=== PATIENT | female | born 1950 | race Caucasian/White ===

== ENCOUNTER → 2021-02-22 | Outpatient (CLI) | payer MEDICARE ==
[~2021-02-22] MED LIST: AMLO-186 PO; ATOR40TA59 PO; OMEP40CA7 PO
[2021-02-25 12:00] VITALS: BP 122/84
== END ==
LOC: LAB 08:00
PROVIDERS: ATTEND Internal Medicine Gastroenterology
DX: Z01.812 Encounter for preprocedural laboratory examination (principal); K21.9 Gastro-esophageal reflux disease without esophagitis; Z20.822 Contact with and (suspected) exposure to COVID-19
CPT/HCPCS: C9803; U0003

== ENCOUNTER → 2021-02-25 | Day surgery (SDC) | payer MEDICARE ==
[~2021-02-25] MED LIST changes: +IPRATRPIUM/ALBUTEROL 0.5/2.5MG 3 ML NEBU. NEB PRN; +IV RINGERS SOLUTION,LACTATED 1,000 ML IV SCH; +LIDOCAINE 2% PF 5 ML VIAL. ONE; +MIDAZOLAM HCL PF 2 MG/2 ML VIAL. IV ONE; +ONDANSETRON PF 4 MG/2 ML VIAL. IV PRN; +PROPOFOL 10,000 MCG/ML (20ML) VIAL IV ONE
[2021-02-25 12:00] VITALS: BP 122/84
--- NOTE | 2021-02-28 17:09 | PATHOLOGY ---
[facility] Accession Number: [id number] . 01 Material submitted: . PART A: ANTRUM - ANTRUM GASTRITIS PART B: sigmoid colon - SIGMOID POLYP . 01 Clinical history: . GERD/SCREENING COLONOSCOPY ESOPHAGOSCOPY/COLONOSCOPY . 02 Diagnosis: A. Gastric biopsies, antrum: - Chronic gastritis, mild. . B. Colonic mucosa, sigmoid colon polypectomy: - Tubulovillous adenoma, predominantly tubular. (JPM:connor; 02/28/2021) QMS 02/28/2021 1119 Local . 02 Comment: Sections of the gastric biopsy reveal segments of gastric antral and antral-duodenal mucosa showing congestion and mild chronic inflammation. A properly controlled immunoperoxidase stain for Helicobacter is negative for Helicobacter organisms. . Sections of the sigmoid colon polypectomy reveal a predominantly tubular, tubulovillous adenoma showing no high grade dysplasia or evidence of malignancy. (JPM:connor; 02/28/2021) . Special stain performed: Immunoperoxidase stain for Helicobacter on A1 . 02 Electronically signed: . Jc Garner MD, Pathologist NPI- [id number] . 01 Gross description: . A. Received in formalin labeled "[place], Yeny, antrum gastritis" are 2 corrales-brown soft tissue fragments measuring in aggregate 0.6 x 0.2 x 0.1 cm. The specimen is submitted entirely in A1. . B. Received in formalin labeled "[place], Yeny, sigmoid polyp" is a corrales-brown nodular mucosal polyp measuring 1.1 x 0.6 x 0.5 cm. The margin is inked and the specimen is bisected and submitted in B1. (SK; 02/26/2021) SYC/SYC 02/26/2021 1252 Local . 02 Pathologist provided ICD-10: K29.50, D12.5 . 02 CPT . 518756, 770268, [id number] Specimen Comment: A courtesy copy of this report has been sent to [phone] Specimen Comment: [id number] Specimen Comment: Report sent to DR. SCALES / DR ROJAS Performed at: [address] [facility], [place] [id number] MD Baljeet Bazan MD Phone: [phone] Performed at: 02 [facility] [address] [place], [place] [id number] MD Jc Garner MD Phone: [phone]
== END | disposition home or self-care (01) ==
LOC: SURG 09:35
PROVIDERS: ATTEND Internal Medicine Gastroenterology
DX: Z12.11 Encounter for screening for malignant neoplasm of colon (principal); R12 Heartburn; K64.9 Unspecified hemorrhoids; D12.5 Benign neoplasm of sigmoid colon; K29.50 Unspecified chronic gastritis without bleeding; K31.89 Other diseases of stomach and duodenum; K63.89 Other specified diseases of intestine; K22.2 Esophageal obstruction; K21.00 Gastro-esophageal reflux disease with esophagitis, without bleeding; K44.9 Diaphragmatic hernia without obstruction or gangrene; Z87.891 Personal history of nicotine dependence; Z79.899 Other long term (current) drug therapy; Z98.890 Other specified postprocedural states; Z72.89 Other problems related to lifestyle
CPT/HCPCS: 43239; 45381; 45385; 88305; 88342; J2001; J2704; J7120